=== PATIENT | female | born 1990 | race Caucasian/White ===

== ENCOUNTER → 2017-08-02 | Outpatient (CLI) | payer OTHER ==
[~2017-08-02] MED LIST: PRENTAB26 PO
--- NOTE | 2017-08-02 15:15 | MAMMOGRAPHY REPORT ---
ULTRASOUND OF BOTH BREASTS: 08/02/2017 CLINICAL HISTORY: 27-year-old woman presents with bilateral painful lumps in the right greater than l eft breast. She noticed a rectangular painful lump in the right superior breast since April 2017 and on physical exam her doctor also felt a lump in the area of pain in the left superior breast. Th e pain fluctuates, sometimes hurts more with activity or simply sitting still. There is also an occa sional pinching sensation. No skin erythema, thickening or nipple discharge. Personal history of pr ior reduction mammoplasty. No family history of breast cancer. COMPARISON: No prior exams were available for comparison. FINDINGS: On palpation in the area of lumps and pain throughout the superior right breast from the 11 :00 through 12:00 axes, and in the left breast 12:00 through 1:00 axes, there is diffusely nodular pa renchyma, with smooth firm lumps throughout the area of concern. On ultrasound, in the superior right breast and the superior left breast, sonographically normal tiss ue is seen without a suspicious solid or cystic mass. IMPRESSION: ACR BI-RADS CATEGORY 2: BENIGN There is no sonographic evidence of malignancy or other suspicious abnormality in the superior aspect of each breast to explain the lumps and pain described by the patient. Therefore, clinical follow-u p is recommended, as biopsy of a clinically suspicious mass should not be precluded by negative imagi ng. These results and recommendations were discussed with the patient at the time of the exam. Ana Lilia Thurman M.D. ay/:08/02/2017 13:46:15 Digital Business Analyst: Dr. Ana Lilia Thurman, [facility] letter sent: Normal 1/2 BI-RADS Code: ACR BI-RADS Category 2: Benign
== END | disposition home or self-care (01) ==
LOC: C.MAMM 11:00
PROVIDERS: ATTEND Nurse Practitioner
DX: N63.10 Unspecified lump in the right breast, unspecified quadrant (principal); N63.20 Unspecified lump in the left breast, unspecified quadrant

== ENCOUNTER 2019-11-14 07:31 | Inpatient (IN) ==
[2019-11-14] MEDS ORDERED: OXYTOCIN 30 UNITS/500 ML BAG IV PRN ×3 (07:41→21:51)
--- NOTE | 2019-11-14 07:59 | History & Physical Report ---
Date of Service November 14, 2019 Assessment & Plan (1) : Olena Gonzales is a 29 y/o female at 39weeks; here for induction of labor; - admit for induction of labor - continue heart monitoring and tocometry - GBS negative - consider addition of Oxytocin labor augmentation Admission and Anticipated Discharge Date Admission Date: November 14, 2019 History of Present Illness Primary Care Provider: Lou Bergeron Olena Gonzales is a 29 y/o female at 39weeks; here for induction of labor; complications with IUGR in previous ; minimal contractions; good movement; no fluid loss; no vaginal blood loss Labs: (06/28/2019) Blood type: O+ Antibody screen: negative H.3 Hct: 40.4 WBC: 15.14 Plt: 251 Rubella: immune VDRL/RPR: nonreactive Gonorrhea: not detected Chlamydia: not detected HIV: negative HbSAg: negative GBS negative passed Glucose tolerance x1 Allergies Allergy/AdvReac Type Severity Reaction Status Date / Time No Known Allergies Allergy Verified 11/13/19 13:37 Home Medications Home Medications Medication Instructions Recorded Confirmed Type PNV cmb#95-ferrous fumarate-FA 1 tab PO DAILY 06/28/19 11/14/19 History [] Past Med/Surg History Social History Preferred Language: Mozambican Communication Ability: Effective 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 Other Information That Helps Us Care for You: No Feels Safe at Home: Yes Safety Concerns: Feels Safe At This Time Smoking Status: Never smoker Second Hand Exposure: No ; Tobacco Cessation Education Requested by Patient: No Hx Alcohol Use: No Hx Substance Use: No Review of Systems Review of Systems: Constitutional: denies fever; chills; sweats; headache Respiratory: denies shortness of breath, difficulty breathing Cardiac: denies chest pain; palpitations; chest pressure Breast: denies breast pain : denies dysuria Physical Exam Physical Exam: General: alert; oriented; no acute distress Cardiac: RRR; no m/g/r Respiratory: CTAB a/p; no wheezes/rales/rhonchi; no increased work of breathing; symmetrical chest rise; no respiratory distress Abdomen: soft; NT/ND; bowel sounds positive Lower extrem: no lower extremity edema or swelling; no deep calf pain; Ivy's sign negative b/l Genitourinary: OB Exam Abdomen: + vertex and + estimated weight (6-7 pounds) Manual OB Exam: + cervical dilation 3 cm, + cervical effacement 50% and + station -2 OB Exam Monitor Tracing: + external FHT monitor used, + external uterine monitor used, + category I and + normal FHT variability deferred cervical exam to Dr. Lockwood Results & Data Results & Data ([facility]) Medications Administered Current Inpatient Medications Lactated Ringer's (Lr) 1,000 mls @ 125 mls/hr IV .Q8H PRN; Protocol PRN Reason: L&D Protocol Stop: 11/16/19 07:40 Oxytocin (Pitocin) 30 units in 500 mls @ 333.333 mls/hr IV .Q1H30M PRN; Protocol PRN Reason: Bleeding Control Stop: 12/14/19 07:40 Supervising Physician Co-Signing Physician Notes Resident Physician Supervision Note: I interviewed and examined the patient. Discussed with Dr. Del Rio and agree with findings and plan as documented in the note. Any exceptions or clarifications are listed here: cervical exam done by me at separate visit. Documented By: Mary Lou Weiss MD, FACOG Resident Activity Tracking Resident Involvement: Resident Care Provided Care Provided: OB Delivery (1) Weeks of gestation: 19 weeks Qualified Code(s): Z3A.19 - 19 weeks gestation of
[2019-11-14 08:08] LABS: Hematocrit (blood only) 38.8 % (37-47); Hemoglobin 12.9 g/dL (12.0-16.0); Mean Corpuscular Hemoglobin 27.6 pg (25-34); Mean Corpuscular Volume 83.1 fL (80-100); Mean Platelet Volume 10.1 fL (7.4-10.4); Platelet Count 339 K/uL (130-400); RDW Coefficient of Variation 14.3 % (11.5-14.5); RDW Standard Deviation 43.1 fL (36.4-46.3); Red Blood Count 4.67 M/uL (4.2-5.4); White Blood Count 12.91 K/uL (4.8-10.8)
[2019-11-14 08:10] LABS: Mean Corpuscular Hgb Conc 33.2 g/dL (32-36)
[2019-11-14] MEDS: LACTATED RINGER'S 1,000 ML IV PRN ×3 (09:30→18:05)
[2019-11-14] MEDS ORDERED: fentaNYL citrate 100 MCG/2 ML VIAL ONE (13:27)
[2019-11-14] MEDS ORDERED: ePHEDrine sulfate 50 MG/ML AMP ONE (13:27)
[2019-11-14] MEDS ORDERED: BUPIVACAINE 0.25% 30 ML VIAL ONE (13:27)
[2019-11-14] MEDS ORDERED: fentaNYL 2MCG/ML ROPIV 1.25MG/ML 100 ML BAG EPI ONE (13:28)
[2019-11-14] MEDS ORDERED: LIDOCAINE HCL 2% MPF (LOCAL) 5 ML VIAL INFIL ONE (13:57)
[2019-11-14] MEDS ORDERED: ACETAMINOPHEN 325 MG TAB PO PRN ×2 (14:11→21:51)
[2019-11-14] MEDS ORDERED: ACETAMINOPHEN 325 MG TAB ONE (14:11)
--- NOTE | 2019-11-14 14:15 | Anesthesiology Consultation ---
Date of Service November 14, 2019 Assessment & Plan Chart Review Chart Review: Acceptable Risk for Labor Epidural Consults Requested none History Height/Weight Height: 5 ft 1 in Weight: 110.223 kg Allergies Allergy/AdvReac Type Severity Reaction Status Date / Time No Known Allergies Allergy Verified 11/13/19 13:37 Medications Home Medications Medication Instructions Recorded Confirmed Last Taken PNV cmb#95-ferrous fumarate-FA 1 tab PO DAILY 06/28/19 11/14/19 11/13/19 [] Active Medications Generic Name Dose Route Start Last Admin Trade Name Freq PRN Reason Stop Dose Admin Lactated Ringer's 1,000 mls @ 125 mls/hr 11/14/19 07:41 11/14/19 13:50 Lr IV 11/16/19 07:40 999 mls/hr .Q8H PRN Administration L&D Protocol Protocol Oxytocin 30 units in 500 mls @ 7 mls/hr 11/14/19 09:37 11/14/19 12:30 Pitocin IV 11/16/19 09:36 0.42 units/hr .Q24H PRN 7 mls/hr Labor Induction/Augmentation Titration Protocol 0.42 UNITS/HR Past Medical History Medical History Abscess of axilla, right (Inactive) 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 (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) History of renal calculi Hx of migraines Hx of varicella Keratitis (Inactive) Macromastia (Inactive 09/19/13) Past Family History Family History Mother Multiple kidney stones Endometriosis Grandmother (Maternal) Endometriosis Son Hypospadias Ptosis of eyelid, left Past Surgical History Surgical History H/O bilateral breast reduction surgery History of tonsillectomy [place] teeth removed Social History Smoking Status: Never smoker Hx Alcohol Use: No Hx Substance Use: No Physical Exam Vital Signs Last Vital Signs Temp 36.7 C 11/14/19 11:02 Pulse 98 H 11/14/19 14:14 Resp 20 11/14/19 11:02 BP 139/92 11/14/19 14:12 Pulse Ox 100 11/14/19 14:14 Testing Laboratory Results 11/14/19 07:51
[2019-11-14] MEDS ORDERED: ONDANSETRON INJ 2 MG/ML 2 ML VIAL IV PRN (14:17)
[2019-11-14] MEDS ORDERED: NALBUPHINE HCL INJ 10 MG/ML AMP IV PRN (14:17)
[2019-11-14] MEDS ORDERED: ePHEDrine sulfate 50 MG/ML AMP IV PRN (14:17)
[2019-11-14] MEDS ORDERED: NALOXONE HCL 0.4 MG/1 ML VIAL/CARP IV PRN (14:17)
[2019-11-14] MEDS ORDERED: DiphenhydrAMINE HCL 50 MG/ML VIAL IV PRN (14:17)
[2019-11-14] MEDS ORDERED: NALOXONE HCL 1 MG in SODIUM CHLORIDE 0.9% 1000ML 1,000 ML IV PRN (14:17)
[2019-11-14] MEDS ORDERED: fentaNYL 2MCG/ML ROPIV 1.25MG/ML 100 ML BAG EPI PRN (14:17)
[2019-11-14] MEDS ORDERED: BENZOCAINE 20% AER SPR 82.5 GM CAN EXT PRN (21:51)
[2019-11-14] MEDS ORDERED: DIPHTHERIA/TETANUS/PERTUSSIS 0.5 ML SYR/VIAL IM ONE (21:51)
[2019-11-14] MEDS ORDERED: HYDROCORTISONE ACETATE 25 MG SUPP PR PRN (21:51)
[2019-11-14] MEDS ORDERED: SUPERCREAM 0.870% 15 GM JAR EXT PRN (21:51)
[2019-11-14] MEDS ORDERED: bisacodyL 10 MG SUPP PR PRN (21:51)
[2019-11-14] MEDS: IBUPROFEN 600 MG TAB PO PRN (23:20)
--- NOTE | 2019-11-15 01:46 | Anesthesia Procedure Note ---
Date of Service November 15, 2019 Anesthesia Post Epidural Note Vital Signs Vital Signs: Temp Pulse Resp BP Pulse Ox 36.9 C 108 H 18 110/56 L 97 11/14/19 23:46 11/14/19 23:46 11/14/19 23:46 11/14/19 23:46 11/14/19 22:04 Pain Intensity Bilateral Abdomen: Pain Intensity: 1 Notes Mental Status: alert / awake / arousable Nausea / Vomiting: adequately controlled Pain: adequately controlled Airway Patency, RR, SpO2: stable & adequate BP & HR: stable & adequate Hydration State: stable & adequate Neuraxial Anesthesia: was administered and sensory block is resolving Anesthetic Complications: no major complications apparent and Pt Satisfied with anesthetic care Epidural: Removed without complications and With tip intact
[2019-11-15] MEDS: IBUPROFEN 600 MG TAB PO PRN ×4 (04:19→22:55)
--- NOTE | 2019-11-15 05:41 | Obstetrical Progress Note ---
Date of Service <Jose Del Rio MD - Last Filed: 11/15/19 06:57> November 15, 2019 Assessment & Plan <Jose Del Rio MD - Last Filed: 11/15/19 06:57> (1) : PPD#1: - doing well, ambulating well, tolerating oral intake - increase in white count since admission, likely secondary to delivery; no reported fevers - tachycardia improved since delivery - continue routine care - after discharge will have follow-up in [address] Lockwood Weeks of gestation: 19 weeks Qualified Code(s): Z3A.19 - 19 weeks gestation of Subjective <Jose Del Rio MD - Last Filed: 11/15/19 06:57> Olena Gonzales is a 29 y/o female ; PPD #1 following spontaneous vaginal delivery at 39 weeks; doing well this morning; minimal abdominal cramping/pain; voiding well; tolerating meals overnight; and able to ambulate some; some persistent spotting with intermittent improvement this morning. Review of Systems Constitutional: denies fever; chills; sweats; headache Respiratory: denies shortness of breath, difficulty breathing Cardiac: denies chest pain; palpitations; chest pressure Breast: denies breast pain : denies dysuria Physical Exam <Jose Del Rio MD - Last Filed: 11/15/19 06:57> General: alert; oriented; no acute distress Cardiac: RRR; no m/g/r Respiratory: CTAB a/p; no wheezes/rales/rhonchi; no increased work of breathing; symmetrical chest rise; no respiratory distress Abdomen: soft; NT/ND; bowel sounds positive Uterus: uterine fundus firm; palpable 2cm below umbilicus Lower extrem: no lower extremity edema or swelling; no deep calf pain; Ivy's sign negative b/l Results & Data <Jose Del Rio MD - Last Filed: 11/15/19 06:57> Vital Signs (Past 12 Hours) Vital Signs Temp Pulse Pulse Resp BP BP Pulse Ox 11/15/19 04:20 36.8 C 78 18 122/78 11/14/19 23:46 36.9 C 108 H 18 110/56 L 11/14/19 23:31 110 H 117/56 L 11/14/19 23:17 110 H 18 128/55 L 11/14/19 22:46 113 H 18 136/63 11/14/19 22:31 100 H 18 132/70 11/14/19 22:16 102 H 18 122/58 L 11/14/19 22:04 114 H 97 11/14/19 22:02 112 H 18 124/58 L 11/14/19 21:59 109 H 95 11/14/19 21:54 112 H 97 11/14/19 21:49 125 H 98 11/14/19 21:46 37.1 C 121 H 18 140/97 11/14/19 21:44 110 H 99 11/14/19 21:39 111 H 98 11/14/19 21:34 176 H 87 L 11/14/19 21:29 165 H 97 11/14/19 21:24 147 H 100 11/14/19 21:23 125 H 135/96 11/14/19 21:19 168 H 100 11/14/19 21:14 129 H 97 11/14/19 21:09 116 H 100 11/14/19 21:07 90 115/65 11/14/19 21:04 88 99 11/14/19 20:59 127 H 99 11/14/19 20:54 113 H 97 11/14/19 20:52 100 H 20 133/81 11/14/19 20:49 106 H 95 11/14/19 20:44 103 H 99 11/14/19 20:39 114 H 96 11/14/19 20:36 91 H 20 100/58 L 11/14/19 20:34 102 H 100 11/14/19 20:29 99 H 99 11/14/19 20:26 36.9 C 18 11/14/19 20:24 101 H 98 11/14/19 20:22 105 H 18 105/56 L 11/14/19 20:19 103 H 98 11/14/19 20:14 99 H 99 11/14/19 20:09 93 H 96 11/14/19 20:07 87 111/68 11/14/19 20:04 99 H 98 11/14/19 20:03 92 H 84 L 11/14/19 19:59 88 99 11/14/19 19:54 91 H 97 11/14/19 19:51 81 18 110/58 L 11/14/19 19:49 85 97 11/14/19 19:44 85 98 11/14/19 19:39 87 98 11/14/19 19:36 96 H 113/66 11/14/19 19:34 105 H 99 11/14/19 19:29 126 H 99 11/14/19 19:24 86 97 11/14/19 19:22 80 20 109/67 11/14/19 19:19 95 H 100 11/14/19 19:14 84 99 11/14/19 19:09 107 H 100 11/14/19 19:07 37.7 C H 110 H 18 126/75 11/14/19 19:04 92 H 100 11/14/19 18:59 113 H 98 11/14/19 18:54 91 H 99 11/14/19 18:53 100 H 139/76 11/14/19 18:49 96 H 97 11/14/19 18:46 116 H 88 L 11/14/19 18:44 110 H 100 11/14/19 18:39 118 H 85 L 11/14/19 18:37 111 H 139/81 11/14/19 18:34 80 99 11/14/19 18:29 90 100 11/14/19 18:24 89 100 11/14/19 18:21 81 18 117/64 11/14/19 18:19 95 H 97 11/14/19 18:14 73 100 11/14/19 18:09 78 86 L 11/14/19 18:07 73 114/70 11/14/19 18:05 86 87 L 11/14/19 18:04 78 93 11/14/19 17:59 88 85 L 11/14/19 17:54 72 100 11/14/19 17:52 77 107/53 L 11/14/19 17:49 82 97 11/14/19 17:44 74 100 Laboratory Results 11/15/19 11/14/19 Range/Units 05:41 07:51 WBC 17.56 H 12.91 H (4.8-10.8) K/uL RBC 4.19 L 4.67 (4.2-5.4) M/uL Hgb 12.0 12.9 (12.0-16.0) g/dL Hct 35.1 L 38.8 (37-47) % MCV 83.8 83.1 (80-100) fL MCH 28.6 27.6 (25-34) pg MCHC 34.2 33.2 (32-36) g/dL RDW Std Deviation 43.6 43.1 (36.4-46.3) fL RDW Coeff of Macey 14.4 14.3 (11.5-14.5) % Plt Count 308 339 (130-400) K/uL MPV 10.0 10.1 (7.4-10.4) fL Medications Administered Current Inpatient Medications Acetaminophen (Tylenol) 650 mg PO Q4H PRN PRN Reason: Pain Stop: 12/14/19 14:10 Acetaminophen (Tylenol) 650 mg PO Q6H PRN PRN Reason: Pain/[place]/Fever Stop: 12/14/19 21:50 Benzocaine (Dermoplast Pain Relieving [place]) 1 appln EXT PRN PRN PRN Reason: Perineal Discomfort Stop: 12/14/19 21:50 Last Admin: 11/14/19 23:19 Dose: 1 appln Documented by: Bisacodyl (Dulcolax) 5 mg PO 1999 [facility] Stop: 11/15/19 20:01 Bisacodyl (Dulcolax) 10 mg IA DAILY PRN PRN Reason: No BM on 2nd post- day Stop: 12/14/19 21:50 Cocaine HCl (Supercream 0.870%) 1 gm EXT BID PRN PRN Reason: Hemorrhoidal Inflammation Stop: 11/28/19 21:50 Diphenhydramine HCl (Benadryl) 25 mg IV Q6H PRN PRN Reason: Itching Stop: 11/15/19 14:16 Docusate Sodium (Colace) 100 mg PO DAILY@08,21 [facility] Stop: 12/15/19 07:59 Ephedrine Sulfate (Ephedrine Sulfate) 10 mg IV Q5M PRN PRN Reason: Hypotension Stop: 11/15/19 14:16 Hydrocortisone (Anusol Hc) 25 mg IA BID PRN PRN Reason: Hemorrhoidal Inflammation Stop: 12/14/19 21:50 Lactated Ringer's (Lr) 1,000 mls @ 125 mls/hr IV .Q8H PRN; Protocol PRN Reason: L&D Protocol Stop: 11/16/19 07:40 Last Infusion: 11/14/19 21:38 Dose: 0 mls/hr Documented by: Oxytocin (Pitocin) 30 units in 500 mls @ 333.333 mls/hr IV .Q1H30M PRN; Protocol PRN Reason: Bleeding Control Stop: 12/14/19 07:40 Oxytocin (Pitocin) 30 units in 500 mls @ 333 mls/hr IV .Q1H31M PRN; Protocol PRN Reason: Labor Induction/Augmentation Stop: 11/16/19 09:36 Last Titration: 11/14/19 21:38 Dose: 19.98 units/hr, 333 mls/hr Documented by: Naloxone HCl 1 mg/ Sodium (Chloride) 1,002.5 mls @ 50 mls/hr IV .Q20H3M PRN PRN Reason: itching or nausea Stop: 11/15/19 14:16 Oxytocin (Pitocin) 30 units in 500 mls @ 333.333 mls/hr IV .Q1H30M PRN; Protocol PRN Reason: Bleeding Control Stop: 12/14/19 21:50 Ibuprofen (Motrin) 600 mg PO Q4H PRN PRN Reason: Pain/[place]/Cramping/Fever Stop: 12/14/19 21:50 Last Admin: 11/15/19 04:19 Dose: 600 mg Documented by: Nalbuphine HCl (Nubain) 5 mg IV Q10M PRN PRN Reason: itching or nausea Stop: 11/15/19 14:16 Naloxone HCl (Narcan) 0.1 mg IV UD PRN PRN Reason: Respiratory Depression Stop: 11/15/19 14:16 Ondansetron HCl (Zofran) 4 mg IV Q6H PRN PRN Reason: Nausea And Vomiting Stop: 11/15/19 14:16 Oxycodone/Acetaminophen (Percocet 5mg/325mg) 1 tab PO Q4H PRN PRN Reason: Pain not relieved by... Stop: 11/28/19 21:50 Prenat Multivit/[place]/Iron/Folic Ac ( Vitamin) 1 tab PO DAILY@08 [facility] Stop: 12/15/19 07:59 Ropivacaine (Epidural (L&D)) 100 ml EPI PRN PRN; Protocol PRN Reason: Pain R/T Labor Stop: 11/15/19 14:16 <Mary Lou Weiss MD, JAXONOG - Last Filed: 11/15/19 07:32> Co-Signing Physician Notes Resident Physician Supervision Note: I interviewed and examined the patient. Discussed with Dr. Del Rio and agree with findings and plan as documented in the note. Any exceptions or clarifications are listed here: [None] Documented By: Mary Lou Weiss MD, ANABELLA Resident Activity Tracking <Jose Del Rio MD - Last Filed: 11/15/19 06:57> Resident Involvement: Resident Care Provided Care Provided: OB Delivery
[2019-11-15 06:35] LABS: Hematocrit (blood only) 35.1 % (37-47); Mean Corpuscular Hemoglobin 28.6 pg (25-34); Mean Corpuscular Hgb Conc 34.2 g/dL (32-36); Mean Corpuscular Volume 83.8 fL (80-100); Platelet Count 308 K/uL (130-400); RDW Coefficient of Variation 14.4 % (11.5-14.5); RDW Standard Deviation 43.6 fL (36.4-46.3); Red Blood Count 4.19 M/uL (4.2-5.4); White Blood Count 17.56 K/uL (4.8-10.8)
--- NOTE | 2019-11-15 08:41 | Delivery Summary ---
DATE OF OPERATION: 11/14/2019 The patient is a 29-year-old white female G2, P1 who presents at 39 weeks for induction of labor. Pitocin was started and she progressed to 4-5 cm dilated. At that point, she received epidural analgesia. Membranes were then ruptured for a copious amount of clear fluid. She progressed to full dilation and pushed effectively over a small midline episiotomy for delivery of a viable male infant. After the head was delivered, the rest of the infant delivered easily and was placed on the mother's abdomen for further attention and drying. The infant was crying vigorously and moving all 4 limbs. After approximately 1 minute, the cord was clamped and cut. The placenta was expressed intact with a 3-vessel cord. The second degree episiotomy with mild extension to a second degree laceration was repaired with 3-0 chromic in the usual fashion. Estimated blood loss was 200 mL. Mother and were doing well after delivery. bleeding was controlled with dilute Pitocin. I attest to the content of the Intraoperative Record and any orders documented therein. Any exception s are noted below.
[2019-11-15] MEDS: OXYCODONE/ACETAMINOPHEN 5mg/325mg TAB PO PRN ×3 (09:07→22:55)
[2019-11-15] MEDS: DOCUSATE SODIUM 100 MG CAP PO SCH ×2 (09:07→20:39)
[2019-11-15] MEDS: PRENATAL VITAMIN 1 TAB PO SCH (09:07)
[2019-11-15] MEDS ORDERED: bisacodyL 5 MG TABEC PO SCH (20:00)
--- NOTE | 2019-11-16 06:21 | Obstetrical Progress Note ---
Date of Service <Jose Del Rio MD - Last Filed: 11/16/19 06:49> November 16, 2019 Assessment & Plan <Jose Del Rio MD - Last Filed: 11/16/19 06:49> (1) : PPD#2: - doing well, ambulating well, tolerating oral intake - continue routine care - after discharge will have follow-up in [address] Mandie Zurita <Jose Del Rio MD - Last Filed: 11/16/19 06:49> Olena Gonzales is a 29 y/o female ; PPD #2 following spontaneous vaginal delivery at 39 weeks; doing well this morning; minimal abdominal cramping/pain; voiding well; tolerating meals overnight; and able to ambulate some; some persistent spotting with intermittent improvement this morning. Review of Systems Constitutional: denies fever; chills; sweats; headache Respiratory: denies shortness of breath, difficulty breathing Cardiac: denies chest pain; palpitations; chest pressure Breast: denies breast pain : denies dysuria Physical Exam <Jose Del Rio MD - Last Filed: 11/16/19 06:49> General: alert; oriented; no acute distress Cardiac: RRR; no m/g/r Respiratory: CTAB a/p; no wheezes/rales/rhonchi; no increased work of breathing; symmetrical chest rise; no respiratory distress Abdomen: soft; NT/ND; bowel sounds positive Uterus: uterine fundus firm; palpable 3cm below umbilicus Lower extrem: no lower extremity edema or swelling; no deep calf pain; Ivy's sign negative b/l Results & Data <Jose Del Rio MD - Last Filed: 11/16/19 06:49> Vital Signs (Past 12 Hours) Vital Signs Temp Pulse Resp BP 11/15/19 23:30 36.6 C 80 18 107/72 11/15/19 20:40 36.7 C 86 18 118/81 Laboratory Results 11/16/19 Range/Units 06:20 Hgb 11.5 L (12.0-16.0) g/dL Hct 34.7 L (37-47) % Medications Administered Current Inpatient Medications Acetaminophen (Tylenol) 650 mg PO Q4H PRN PRN Reason: Pain Stop: 12/14/19 14:10 Acetaminophen (Tylenol) 650 mg PO Q6H PRN PRN Reason: Pain/[place]/Fever Stop: 12/14/19 21:50 Benzocaine (Dermoplast Pain Relieving [place]) 1 appln EXT PRN PRN PRN Reason: Perineal Discomfort Stop: 12/14/19 21:50 Last Admin: 11/14/19 23:19 Dose: 1 appln Documented by: Bisacodyl (Dulcolax) 10 mg MD DAILY PRN PRN Reason: No BM on 2nd post- day Stop: 12/14/19 21:50 Cocaine HCl (Supercream 0.870%) 1 gm EXT BID PRN PRN Reason: Hemorrhoidal Inflammation Stop: 11/28/19 21:50 Docusate Sodium (Colace) 100 mg PO DAILY@08,21 [facility] Stop: 12/15/19 07:59 Last Admin: 11/15/19 20:39 Dose: 100 mg Documented by: Hydrocortisone (Anusol Hc) 25 mg MD BID PRN PRN Reason: Hemorrhoidal Inflammation Stop: 12/14/19 21:50 Lactated Ringer's (Lr) 1,000 mls @ 125 mls/hr IV .Q8H PRN; Protocol PRN Reason: L&D Protocol Stop: 11/16/19 07:40 Last Infusion: 11/14/19 21:38 Dose: 0 mls/hr Documented by: Oxytocin (Pitocin) 30 units in 500 mls @ 333.333 mls/hr IV .Q1H30M PRN; Protocol PRN Reason: Bleeding Control Stop: 12/14/19 07:40 Oxytocin (Pitocin) 30 units in 500 mls @ 333 mls/hr IV .Q1H31M PRN; Protocol PRN Reason: Labor Induction/Augmentation Stop: 11/16/19 09:36 Last Titration: 11/14/19 21:38 Dose: 19.98 units/hr, 333 mls/hr Documented by: Oxytocin (Pitocin) 30 units in 500 mls @ 333.333 mls/hr IV .Q1H30M PRN; Protocol PRN Reason: Bleeding Control Stop: 12/14/19 21:50 Ibuprofen (Motrin) 600 mg PO Q4H PRN PRN Reason: Pain/[place]/Cramping/Fever Stop: 12/14/19 21:50 Last Admin: 11/15/19 22:55 Dose: 600 mg Documented by: Oxycodone/Acetaminophen (Percocet 5mg/325mg) 1 tab PO Q4H PRN PRN Reason: Pain not relieved by... Stop: 11/28/19 21:50 Last Admin: 11/15/19 22:55 Dose: 1 tab Documented by: Prenat Multivit/[place]/Iron/Folic Ac ( Vitamin) 1 tab PO DAILY@08 [facility] Stop: 12/15/19 07:59 Last Admin: 11/15/19 09:07 Dose: 1 tab Documented by: <Luis Pavon MD, FACOG - Last Filed: 11/16/19 07:04> Co-Signing Physician Notes Resident Physician Supervision Note: I interviewed and examined the patient. Discussed with Dr. Del Rio and agree with findings and plan as documented in the note. Any exceptions or clarifications are listed here: [None] Documented By: Luis Pavon MD, FACOG Resident Activity Tracking <Jose Del Rio MD - Last Filed: 11/16/19 06:49> Resident Involvement: Resident Care Provided Care Provided: OB Delivery
[2019-11-16 06:37] LABS: Hematocrit (blood only) 34.7 % (37-47); Hemoglobin 11.5 g/dL (12.0-16.0)
[2019-11-16] MEDS: PRENATAL VITAMIN 1 TAB PO SCH (08:16)
[2019-11-16] MEDS: IBUPROFEN 600 MG TAB PO PRN (08:16)
[2019-11-16] MEDS: DOCUSATE SODIUM 100 MG CAP PO SCH (08:16)
== END 2019-11-16 10:25 | disposition home or self-care (01) | DRG 807 ==
LOC: 4S1 07:31 → 4S2 11-15 00:36